=== PATIENT | female | born 1955 | race Caucasian/White ===

== ENCOUNTER 2021-10-31 06:20 | Day surgery (SDC) | payer MEDICARE ==
--- NOTE | 2021-10-30 10:05 | RAD REPORT ---
EXAM DESCRIPTION: Michael Weiss And Tona (2 Views)10/30/2021 9:52 am CLINICAL HISTORY: Preop. Hypertension COMPARISON: None FINDINGS: The lungs appear clear of acute infiltrate. The heart is mildly enlarged. IMPRESSION: No acute abnormalities displayed
[2021-10-30 10:31] LABS: Absolute Lymphocytes (CBC) 1.3 K/uL (0.7-4.9); Hematocrit 32.6 % (36.0-45.0); Lymphocytes % 15.2 % (15.3-44.8); MPV 8.1 fL (7.6-11.3); RBC Red Blood Cell Count 3.71 M/uL (3.86-4.86)
[2021-10-30 10:34] LABS: SARS-CoV-2 Antigen Rapid Res Negative (Negative)
[2021-10-30 10:36] LABS: Potassium 4.1 mmol/L (3.5-5.1)
[2021-10-31] MEDS ORDERED: NA CHLORIDE 0.9% 1,000 ML ONE (06:42)
[2021-10-31] MEDS ORDERED: propofoL 200 MG/20 ML VIAL IV ONE (07:23)
[2021-10-31] MEDS ORDERED: ONDANSETRON 4 MG/2 ML VIAL ONE ×2 (07:23→08:08)
[2021-10-31] MEDS ORDERED: FENTANYL CITR 100 MCG/2 ML ONE (07:23)
[2021-10-31] MEDS ORDERED: LIDOCAINE 2% MPF 5 ML VIAL ONE (07:23)
[2021-10-31] MEDS ORDERED: MIDAZOLAM HCL 2 MG/2 ML INJ ONE (07:26)
[2021-10-31] MEDS ORDERED: CEFAZOLIN SODIUM 1 GM/VIAL ONE (07:41)
[2021-10-31] MEDS ORDERED: ROCURONIUM 50 MG/5 ML VIAL IV ONE (07:47)
[2021-10-31] MEDS ORDERED: dexAMETHasone 4 MG/ML VIAL ONE (08:08)
--- NOTE | 2021-10-31 08:15 | P.BOP ---
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
[2021-10-31] MEDS ORDERED: KETOROLAC 30 MG/ML INJ ONE (08:28)
[2021-10-31 09:19] VITALS: BP 173/73; TEMP 96.9; O2SAT 93
--- NOTE | 2021-10-31 12:52 | OP ---
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 Postoperative Diagnosis: Left buttock ulcerated squamous cell carcinoma. Procedure: Wide resection of left buttock ulcerated squamous cell carcinoma, 11 x 7 x 1.5 cm. Estimated Blood Loss: Less than 10 mL. Specimen: Mass. Finding: As above. Anesthesia: General plus local. Packing: Wet-to-dry dressing. Indication: This is the case of a female. For many years, she has this lesion on her buttock that h as been expanding, getting bigger to the point that it is ulcerated with drainage coming from it, [facility], did an incisional biopsy showing squamous cell carcinoma, and she was booked for wide excision of squamous cell carcinoma. She has multiple ulcerations over the area, so she understands that we are going to do wide excision with most likely wound care. The benefits, alt ernatives, and risks were fully explained, which include, but not limited to infection, bleeding, dam age to adjacent structures, anesthesia complication, nonhealing wound, PR, and even . She also understands this may not relieve any symptoms. She might need more than one surgical intervention. She understood, signed a consent. The area of concern [facility]. Procedure In Detail: The patient was brought to the operating room, placed in supine position. Anes thesia was induced without complication. Then, the patient was placed in prone position with proper protection. The area of concern was delineated to leave about negative margins about at least 1-2 cm . Then, we proceeded to remove this area and then go all the way down to the fat area until we see t he lesion completely excised. The specimen marked for orientation leaving a gap on that area about 1 1 x 7 x 1.5 cm. Due to the nature of this and how it erythematous looks and how colonized with bacte bijan is with multiple ulcerations, we believe leaving this area to close by secondary intention is a w ise thing to do with less complications. So, we obtained hemostasis and placed local anesthetic and packed the area with wet-to-dry dressing. The patient tolerated the procedure well. The patient was sent in the recovery room in stable condition. The patient will be [facility]. KENDELL/VIVEK Voice ID: [id number] Report ID: [id number]
--- NOTE | 2021-10-31 12:52 | DS ---
Date of Discharge: 10/31/2021 Diagnosis: Left buttock ulcerated squamous cell carcinoma. Procedure: Wide resection of left buttock ulcerated squamous cell carcinoma. Disposition: Home. Activity: As tolerated. No heavy lifting. Plan: [facility] this Friday or Friday. Wet-to-dry dressing and norm al saline until then. KENDELL/VIVEK Voice ID: [id number] Report ID: [id number]
== END 2021-10-31 09:56 | disposition home or self-care (01) ==
LOC: OR 06:20
PROVIDERS: ATTEND Surgery
PROC: 0JB90ZZ Excision of Buttock Subcutaneous Tissue and Fascia, Open Approach (ICD-10-PCS; principal; 2021-10-31 07:30)
DX: C44.529 Squamous cell carcinoma of skin of other part of trunk (principal); Z20.822 Contact with and (suspected) exposure to COVID-19; I10 Essential (primary) hypertension; E11.9 Type 2 diabetes mellitus without complications; F17.210 Nicotine dependence, cigarettes, uncomplicated; E78.00 Pure hypercholesterolemia, unspecified
CPT/HCPCS: 85025; 80048; 36415; 82947 ×2; 88305; 71046; 87811; 11606; J2704; J1100; J2250; J3010; J7030; J2405 ×2; J0690; J2001